=== PATIENT | female | born 1995 | race Two or more races ===

== ENCOUNTER 2024-05-15 11:45 | Emergency (ER) | payer MEDICAID, OTHER ==
[~2024-05-15] VITALS: Ht 157.5 cm; Wt 71.4 kg
[2024-05-15 13:28] VITALS: BP 127/90; PULSE 116; RESP 20; TEMP 97.7; O2SAT 96
--- NOTE | 2024-05-15 13:54 | ED.PDOC ---
Eye-HPI HPI Comments A 29 YEAR OLD FEMALE PRESENTS TO THE ED WITH CHIEF COMPLAINT OF SORE THROAT. PATIENT REPORTS THAT SHE HAS BEEN EXPERIENCING A SORE THROAT WITH ASSOCIATED FEVER SINCE SUNDAY LAST WEEK, HOWEVER, SHE STARTED TO EXPERIENCE PAIN RADIATING TO HER EARS SINCE SUNDAY. PATIENT RELAYS THAT SHE FEELS IF HER THROAT IS SWOLLEN SHE IS UNABLE TO BREATH WELL WHEN ATTEMPTING TO SLEEP. PATIENT DENIES ANY CHEST PAIN, SOB, COUGH, CONGESTION, HEADACHE, OR DIZZINESS.NO OTHER SYMPTOMS REPORTED AT THIS TIME OF CARE. Chief Complaint: Sore Throat Time Seen by MD: 12:47 Reviewed Notes: Nurses Notes, Medications, Allergies Allergies: Coded Allergies: Baclofen (Verified Allergy, Unknown, 05/15/24) Home Meds Active Scripts Lidocaine HCl (Mouth-Throat) (Lidocaine HCl Viscous) 2 % Ximena, 10 ML MT TID, #100 ML Prov:GLENN MACIAS 05/15/24 Azithromycin (Azithromycin) 500 Mg Tab, 1 TAB PO DAILY, #5 TAB Prov:GLENN MACIAS 05/15/24 Information Source: Patient Mode of Arrival: Ambulatory Timing: Days Duration: Since onset Prehospital treatment: None Quality: Pain Lids: Normal Conjunctiva: Normal Cornea: Normal Pupils: Normal EOM: Normal Fundus: Normal Anterior chamber: Normal Mouth Location: Pharynx Mouth: Normal ENT Ear Exam: Normal, Normal, Normal Nose: Normal Sinuses: Normal Oropharynx: Tonsillar hypertrophy, Red Onset: Spontaneous Throat Exposed to: None History of: None Associated signs and symptoms: Fever, Sore Throat, Ear Pain Past Medical History PAST MEDICAL HISTORY: Denies Surgical History: Denies all surgeries TIER IN History: No Pertinent TIER IN History Family History Family History: Reviewed,noncontributory to illness Social History Smoker: Non-Smoker Alcohol: Denies ETOH Use Drugs: Denies Drug Use Lives In: Home Constitutional: reports: fever; denies: chills, diaphoresis, fatigue, malaise, sweats, weakness, others EENTM: reports: ear pain, throat pain, throat swelling, voice changes; denies: blurred vision, double vision, ear bleeding, ear discharge, ear drainage, ear ringing, eye pain, eye redness, hearing loss, mouth pain, mouth swelling, nasal discharge, nose bleeding, nose congestion, nose pain, photophobia, tearing, othe rs Respiratory: denies: cough, hemoptysis, orthopnea, SOB at rest, shortness of breath, SOB with excertion, stridor, wheezing, others Cardiovascular: denies: chest pain, dizzy spells, diaphoresis, Dyspnea on exer tion, edema, irregular heart beat, left arm pain, lightheadedness, palpitations, PND, syncope, others Gastrointestinal: denies: abdomen distended, abdominal pain, blood streaked bowels, constipated, diarrhea, dysphagia, difficulty swallowing, hematemesis, melena, nausea, poor appetite, poor fluid intake, rectal bleeding, rectal pain, vomiting, others Genitourinary: denies: abnormal vagina bleeding, burning, dyspareunia, dysuria, flank pain, frequency, hematuria, incontinence, pain, , vagina discharge, urgency, others Neurological: denies: dizziness, fainting, headache, left sided numbness, left sided weakness, numbness, paresthesia, pre-existing deficit, right sided numbness, right sided weakness, seizure, speech problems, tingling, tremors, weakness, others Musculoskeletal: denies: back pain, gout, joint pain, joint swelling, muscle pain, muscle stiffness, neck pain, others Integumetry: denies: bruises, change in color, change in hair/nails, dryness, laceration, lesions, lumps, rash, wounds, others Allergic/Immunocompromised: denies: Difficulty Healing, Frequent Infections, Hives, Itching, others Hematologic/Lymphatic: denies: anemia, blood clots, easy bleeding, easy bruising, swollen glands, others Endocrine: denies: excessive hunger, excessive sweating, excessive thirst, excessive urination, flushing, intolerance to cold, intolerance to heat, unexplained weight gain, unexplained weight loss, others Psychiatric: denies: anxiety, bipolar disorder, depression, hopeless, panic disorder, schizophrenia, sleepless, suicidal, others All Other Systems: Reviewed and Negative Physical Exam General Appearance: No Apparent Distress, Normal HEENT: PERRL/EOMI, Pharyngeal Erythema (TONSILLAR SWELLING, NO EXUDATES. ), TMs Normal Neck: Full Range of Motion, Lymphadenopathy (R), Non-Tender, Normal, Normal Inspection, Supple Respiratory: Chest Non-Tender, Lungs Clear, No Accessory Muscle Use, No Respiratory Distress, Normal Breath Sounds Cardiovascular: No Edema, No JVD, No Murmur, No Gallop, Normal Peripheral Pulses, Regular Rate/Rhythm Breast Exam: Deferred Gastrointestinal: No Organomegaly, Non Tender, No Pulsatile Mass, Normal Bowel Sounds, Soft Genitalia: Deferred Pelvic: Deferred Rectal: Deferred Extremities: No calf tenderness, Normal capillary refill, Normal inspection, Normal range of motion, Non-tender, No pedal edema Musculoskeletal : Apperance: Normal Neurologic: Alert, instrumentation technician II-XII nml as Tested, No Motor Deficits, Normal Affect, Normal Mood, No Sensory Deficits Cerebellar Function: Normal Reflexes: Normal Skin: Dry, Normal Color, Warm Peripheral Pulses: 2+ carotid (R), 2+ carotid (L) Lymphatic: Cervical Adenopathy (R) Was a procedure done? Was a procedure done?: No EENT DIFF Eye: N/A Ear: Pharyngitis, Sinusitis Sore Throat: Pharyngitis, Viral Pharyngitis, URI X-Ray, Labs, Meds, VS Vital Signs Date Time Temp Pulse Resp B/P (MAP) Pulse Ox O2 Delivery O2 Flow Rate FiO2 05/15/24 13:28 116 20 96 Room Air 05/15/24 13:28 97.7 116 20 127/90 (102) 96 97.7 05/15/24 12:19 97.0 116 20 127/90 (102) 96 97.0 05/15/24 12:19 20 96 Room Air 0 X-Ray, Labs, Meds, VS Comment EXTERNAL MEDICAL RECORDS REVIEWED: [NONE] INDEPENDENT HISTORIANS: [NONE] SOCIAL DETERMINANTS OF HEALTH: [NONE] LABS ORDERED: NONE REVIEWED AND INTERPRETED RESULTS: NONE IMAGING ORDERED: NONE TREATMENTS ORDERED: ROCEPHIN 1 G IM, SOLU-MEDROL 125MG IM PROCEDURES PERFORMED: NONE CRITICAL CARE TIME: NONE I HAVE DISCUSSED THE PATIENT WITH THE ATTENDING PHYSICIAN DR. AGUILAR] AND HE AGREES WITH THE PATIENT'S PLAN OF CARE AND DISPOSITION. BASED ON HISTORY OF PRESENT ILLNESS, AND PHYSICAL EXAM, PATIENT WILL BE DISCHARGED HOME. DISCUSSED PLAN FOR DISCHARGE HOME WITH RX: AZITHROMYCIN AND 2% VISCUS LIDOCAINE. MEDICATION WARNINGS GIVEN. SHARED DECISION MAKING: DISCUSSED WITH PATIENT THAT THEIR WORKUP WAS NORMAL. PATIENT INSTRUCTED TO FOLLOW UP WITH PRIMARY CARE PROVIDER IN 1-2 DAYS FOR RE- EVALUATION OF SYMPTOMS. PATIENT VERBALIZES UNDERSTANDING TO RETURN TO ED FOR NEW OR WORSENING SYMPTOMS OR IF FOLLOW UP WITH PCP CANNOT BE OBTAINED. PATIENT FEELS COMFORTABLE GOING HOME AT THIS TIME. ALL QUESTIONS ADDRESSED AT TIME OF DISCHARGE. Time of 1ST Reevaluation: 14:15 Reevaluation 1ST: Improved Patient Education/Counseling: Diagnosis, Treatment, Need For Follow Up Family Education/Counseling: Diagnosis, Treatment, Need For Follow Up Medical Screening: No EMC Exist At This Time Departure 1 Departure Time of Disposition: 14:20 Impression: Primary Impression: Acute erythematous tonsillitis Disposition: HOME / SELF CARE / HOMELESS Condition: Stable Additional Instructions: FOLLOW-UP WITH PCP IN 1 TO 2 DAYS. TAKE MEDICATIONS PRESCRIBED. RETURN TO ED FOR ANY NEW OR WORSENING SYMPTOMS. e-Prescriptions Lidocaine HCl (Mouth-Throat) (Lidocaine HCl Viscous) 2 % Ximena 10 ML MT TID, #100 ML Prov: GLENN MACIAS 05/15/24 Azithromycin (Azithromycin) 500 Mg Tab 1 TAB PO DAILY, #5 TAB Prov: GLENN MACIAS 05/15/24 Discharged With: Self, Relative (Mother) Critical Care Note Critical Care Time?: No Stability Stability form required: No Heart Score Heart Score: Heart Score Response (Comments) Value History N/A 0 EKG N/A 0 Age N/A 0 Risk Factors N/A 0 Troponin N/A 0 Total 0 I personally scribed for GLENN MACIAS ([email or web address]) on 05/15/24 at 13:53. Electronically submitted by French Hendricks ([email or web address]). GLENN MACIAS May 15, 2024 13:53
[2024-05-15] MEDS ORDERED: LIDO2SOL26 MT (13:55)
[2024-05-15] MEDS ORDERED: AZIT500T66 PO (13:55)
[2024-05-15] MEDS: methylPREDNISolone SOD SUCC 125 MG/2 ML VL IM ONE (13:59)
[2024-05-15] MEDS: cefTRIAXone SOD 1,000 MG VL IM ONE (13:59)
== END 2024-05-15 14:09 | disposition home or self-care (01) ==
LOC: ER 12:03
DX: J03.90 Acute tonsillitis, unspecified (principal); Z79.899 Other long term (current) drug therapy; Z88.8 Allergy status to other drugs, medicaments and biological substances
CPT/HCPCS: 96372; 99284; J0696; J2919